=== PATIENT | female | born 1960 | race American Indian/Alaskan Native ===

== ENCOUNTER 2016-12-25 09:35 | Outpatient (CLI) | payer OTHER ==
--- NOTE | 2016-12-25 09:59 | XRay Report ---
Chest 2 views. Findings: The heart is normal in size with normal pulmonary vascularity. The lungs are clear. There is no pleural fluid. No interstitial prominence on today's study. Impression: No acute findings.
== END 2016-12-25 09:36 | disposition home or self-care (01) ==
LOC: XRAY 09:35
PROVIDERS: ATTEND Internal Medicine
DX: Z02.71 Encounter for disability determination (principal); I50.9 Heart failure, unspecified
CPT/HCPCS: 71020

== ENCOUNTER 2022-04-21 14:08 | Observation (INO) | payer MEDICARE, OTHER ==
--- NOTE | 2022-04-21 14:12 | Emergency Department Report ---
Stated Complaint: CHEST PAIN SHORT OF BREATH Time Seen by Provider: 04/21/22 14:09 - HPI History of Present Illness: CP, sob, and n/v since Thursday. - ROS Review of Systems: c/o cp, sob, n/v. denies dizziness, fever. - Exam Physical Exam: alert and oriented. MSE screening note: Focused history and physical exam performed. Due to findings the following was ordered: cbc, cmp, troponin, ekg, cxr Patient will be evaluated by provider when she goes to a room. ED Disposition for MSE Condition: Stable
--- NOTE | 2022-04-21 14:54 | XRay Report ---
CHEST 2 VIEWS INDICATION / CLINICAL INFORMATION: chest pain. COMPARISON: 2 views of the chest from 12/25/2016. FINDINGS: SUPPORT DEVICES: None. HEART / MEDIASTINUM: No significant abnormality. LUNGS / PLEURA: No significant pulmonary abnormality. No significant pleural effusion. No pneumothora x. ADDITIONAL FINDINGS: No significant additional findings. IMPRESSION: 1. No acute abnormality of the chest. Signer Name: Wing Segovia MD Signed: 04/21/2022 2:47 PM Workstation Name: [id number]
[2022-04-21 15:21] LABS: Hematocrit 38.1 % (30.3-42.9); Hemoglobin 12.9 gm/dl (10.1-14.3); Mean Corpuscular HGB Conc 34 % (30-34); Mean Corpuscular Volume 89 fl (79-97); Platelet Count 245 K/mm3 (140-440); Red Blood Count 4.31 M/mm3 (3.65-5.03); Red Cell Distribution Width 12.1 % (13.2-15.2)
[2022-04-21 15:50] LABS: Alanine Aminotransferase 12 units/L (7-56); Albumin 3.8 g/dL (3.9-5); BUN/Creatinine Ratio 18; Blood Urea Nitrogen 22 mg/dL (7-17); Calcium 9.3 mg/dL (8.4-10.2); Hemolysis Index 110
[2022-04-21] MEDS ORDERED: SODIUM CHLORIDE 0.9% 1000 ML 1,000 ML IV ONE ×3 (17:05→22:13)
[2022-04-21] MEDS ORDERED: DEXTROSE 50% IN WATER (25GM) 50 ML SYRINGE IV PRN (17:06)
[2022-04-21] MEDS ORDERED: INSULIN REGULAR, HUMAN 100 UNITS/1 ML IV ONE ×2 (17:08→23:20)
--- NOTE | 2022-04-21 17:10 | Event Note ---
ED Screening Note Date of service: 04/21/22 Time: 17:09 ED Screening Note: This initial assessment/diagnostic orders/clinical plan/treatment(s) is/are subject to change based on patients health status, clinical progression and re- assessment by fellow clinical providers in the ED. Further treatment and workup at subsequent clinical providers discretion. Patient/guardian urged not to elope from the ED as their condition may be serious if not clinically assessed and managed. Initial orders include: I received a phone call from lab with concern for elevated blood sugars. I have reviewed patient's labs. Patient has evidence of DKA. Given this I have ordered insulin bolus and insulin drip and will inform the front and patient to get a room as soon as possible.
[2022-04-21 18:25] LABS: Calcium 9.2 mg/dL (8.4-10.2)
[2022-04-21 23:21] LABS: Calcium 9.2 mg/dL (8.4-10.2)
[2022-04-21] MEDS ORDERED: INSULIN REGULAR, HUMAN 100 UNITS in SODIUM CHLORIDE 0.9% 99 ML IV SCH (23:45)
[2022-04-21] MEDS: INSULIN REGULAR, HUMAN 100 UNITS in SODIUM CHLORIDE 0.9% 99 ML IV SCH (23:56)
--- NOTE | 2022-04-22 00:44 | Emergency Department Report ---
ED General Adult HPI - General Chief complaint: Chest Pain Stated complaint: CHEST PAIN SHORT OF BREATH PUI?: No Time Seen by Provider: 04/21/22 14:09 Source: patient Mode of arrival: Ambulatory Limitations: No Limitations - History of Present Illness Initial comments: Pt reports substernal chest pain x3 days. pt presented to ED anxious and crying. pt reports she has had multiple MIs. pt reports her chest pain started after she was on a couple days worth of abx. pt reports SOB that improved while talking to her in triage. pt denies diaphoresis or n/v. + epigastric pain after eating some soup today. -: Gradual, days(s) (3) Location: chest Radiation: non-radiation Severity scale (0 -10): 0 Improves with: none Worsens with: none Treatments Prior to Arrival: none - Related Data Previous Rx's Medication Instructions Recorded Last Taken Type Aspirin EC [Halfprin EC] 81 mg PO QDAY #30 tablet.dr 06/12/16 Unknown Rx Furosemide [Lasix TAB] 40 mg PO QDAY #30 tablet 06/12/16 Unknown Rx Potassium Chloride 10 meq PO QDAY #30 capsule.er 06/12/16 Unknown Rx carvediloL [Coreg] 6.25 mg PO BID #60 tablet 06/12/16 Unknown Rx lisinopriL [Zestril TAB] 10 mg PO QDAY #30 tablet 06/12/16 Unknown Rx predniSONE 10 mg PO QDAY #10 tab 06/12/16 Unknown Rx Allergies Allergy/AdvReac Type Severity Reaction Status Date / Time No Known Allergies Allergy Unverified 06/10/16 14:16 ED Review of Systems ROS: Stated complaint: CHEST PAIN SHORT OF BREATH Other details as noted in HPI Constitutional: denies: chills, fever Eyes: denies: eye pain, eye discharge, vision change ENT: denies: ear pain, throat pain Respiratory: denies: cough, shortness of breath, wheezing Cardiovascular: denies: chest pain, palpitations Endocrine: no symptoms reported Gastrointestinal: denies: abdominal pain, nausea, diarrhea Genitourinary: denies: urgency, dysuria, discharge Musculoskeletal: denies: back pain, joint swelling, arthralgia Skin: denies: rash, lesions Neurological: denies: headache, weakness, paresthesias Psychiatric: denies: anxiety, depression Hematological/Lymphatic: denies: easy bleeding, easy bruising ED Past Medical Hx - Past Medical History Hx Hypertension: Yes Hx GERD: Yes Additional medical history: anxiety - Surgical History Additional Surgical History: foot surgery, face surgery, nose - Social History Smoking Status: Never Smoker - Medications Home Medications: Home Medications Medication Instructions Recorded Confirmed Last Taken Type Aspirin EC [Halfprin EC] 81 mg PO QDAY #30 tablet.dr 06/12/16 Unknown Rx Furosemide [Lasix TAB] 40 mg PO QDAY #30 tablet 06/12/16 Unknown Rx Potassium Chloride 10 meq PO QDAY #30 capsule.er 06/12/16 Unknown Rx carvediloL [Coreg] 6.25 mg PO BID #60 tablet 06/12/16 Unknown Rx lisinopriL [Zestril TAB] 10 mg PO QDAY #30 tablet 06/12/16 Unknown Rx predniSONE 10 mg PO QDAY #10 tab 06/12/16 Unknown Rx ED Physical Exam - General Limitations: No Limitations General appearance: alert, in no apparent distress - Head Head exam: Present: atraumatic, normocephalic - Eye Eye exam: Present: normal appearance - ENT ENT exam: Present: mucous membranes moist - Neck Neck exam: Present: normal inspection - Respiratory Respiratory exam: Present: normal lung sounds bilaterally. Absent: respiratory distress - Cardiovascular Cardiovascular Exam: Present: regular rate, normal rhythm. Absent: systolic murmur, diastolic murmur, rubs, gallop - GI/Abdominal GI/Abdominal exam: Present: soft, normal bowel sounds - Extremities Exam Extremities exam: Present: normal inspection - Back Exam Back exam: Present: normal inspection - Neurological Exam Neurological exam: Present: alert, oriented X3 - Psychiatric Psychiatric exam: Present: normal affect, normal mood - Skin Skin exam: Present: warm, dry, intact, normal color. Absent: rash ED Course Vital Signs 04/21/22 04/21/22 04/21/22 14:10 23:24 23:27 Temperature 98.9 F 98.1 F Pulse Rate 95 H Respiratory 26 H 17 Rate Blood Pressure 117/72 Blood Pressure 139/73 [Left] O2 Sat by Pulse 99 100 100 Oximetry ED Medical Decision Making - Lab Data Result diagrams: 04/21/22 14:22 04/21/22 22:49 - EKG Data -: EKG Interpreted by Nj EKG shows normal: sinus rhythm - EKG Data Interpretation: LVH - Radiology Data Radiology results: report reviewed, image reviewed - Medical Decision Making work up showed elevated BS , new to patient , ketosis gap and acidosis , fluids given insulin bolus and drip started with DKA protocol Critical care attestation.: If time is entered above; I have spent that time in minutes in the direct care of this critically ill patient, excluding procedure time. ED Disposition Clinical Impression: DKA (diabetic ketoacidosis), Diabetes mellitus, new onset, Ketosis, Chest pain Disposition: 09 ADMITTED INPATIENT Is pt being admited?: Yes Does the pt Need Aspirin: No Condition: Fair Instructions: Diabetic Ketoacidosis (ED), Diabetes Mellitus Type 2 in Adults (ED), Nonspecific Chest Pain, Adult Referrals: PRIMARY CARE, [Primary Care Provider] - 3-5 Days
[2022-04-22 02:06] LABS: Calcium 8.7 mg/dL (8.4-10.2)
[2022-04-22] MEDS ORDERED: ACETAMINOPHEN 325 MG TAB PO PRN (02:35)
[2022-04-22] MEDS ORDERED: DEXTROSE 50% IN WATER (25GM) 50 ML SYRINGE IV PRN ×2 (02:35→08:24)
[2022-04-22] MEDS ORDERED: MORPHINE 4 MG/1 ML INJ IV PRN (02:35)
[2022-04-22] MEDS ORDERED: NITROGLYCERIN 0.4 MG TAB SUBL SL PRN (02:35)
[2022-04-22] MEDS ORDERED: traMADol 50 MG TAB PO PRN (02:35)
--- NOTE | 2022-04-22 02:43 | History and Physical Report ---
History of Present Illness Date of examination: 04/22/22 Date of admission: 04/22/22 Chief complaint: Chest pain Shortness of breath History of present illness: 62 years old female with past medical history of hypertension, GERD and anxiety disorder was brought to the emergency room because of substernal chest pain x3 days. pt presented to ED anxious and crying. pt reports she has had multiple MIs. pt reports her chest pain started after she was on a couple days worth of abx. pt reports SOB that improved while talking to her in triage. pt denies diaphoresis or n/v. + epigastric pain after eating some soup today. In the emergency room initial cardiac enzyme is negative troponin is 0.010 but patient is found to have DKA. Patient blood glucose is 733, bicarb 16, anion gap 28, potassium 5.1 and sodium 129. So going to admit to the ICU put the patient on IV fluid and insulin drip , will consult critical care for evaluation Past History Past Medical History: GERD, hypertension, other (Anxiety) Past Surgical History: Other (foot surgery, face surgery, nose) Social history: no significant social history Family history: hypertension Medications and Allergies Allergies Allergy/AdvReac Type Severity Reaction Status Date / Time No Known Allergies Allergy Unverified 06/10/16 14:16 Home Medications Medication Instructions Recorded Confirmed Last Taken Type Aspirin EC [Halfprin EC] 81 mg PO QDAY #30 tablet.dr 06/12/16 Unknown Rx Furosemide [Lasix TAB] 40 mg PO QDAY #30 tablet 06/12/16 Unknown Rx Potassium Chloride 10 meq PO QDAY #30 capsule.er 06/12/16 Unknown Rx carvediloL [Coreg] 6.25 mg PO BID #60 tablet 06/12/16 Unknown Rx lisinopriL [Zestril TAB] 10 mg PO QDAY #30 tablet 06/12/16 Unknown Rx predniSONE 10 mg PO QDAY #10 tab 06/12/16 Unknown Rx Active Meds: Active Medications Dextrose (Dextrose 50% In Water (25gm) 50 Ml Syringe) 0 ml IV Q30MIN PRN; Protocol PRN Reason: Hypoglycemia Insulin Human Regular 100 (units/ Sodium Chloride) 100 mls @ 1 mls/hr IV TITR SÁNCHEZ; Protocol Last Titration: 04/22/22 02:14 Dose: 11 units/hr, 11 mls/hr Review of Systems All systems: negative Cardiovascular: chest pain, shortness of breath Respiratory: shortness of breath Exam - Constitutional Vitals: Temp Pulse Resp BP Pulse Ox 98.2 F 80 16 122/84 100 04/22/22 01:22 04/22/22 01:22 04/22/22 01:22 04/22/22 01:22 04/22/22 01:22 General appearance: Present: no acute distress, well-nourished - EENT Eyes: Present: PERRL ENT: hearing intact, clear oral mucosa - Neck Neck: Present: supple, normal ROM - Respiratory Respiratory effort: normal Respiratory: bilateral: CTA - Cardiovascular Heart Sounds: Present: S1 & S2. Absent: rub, click - Extremities Extremities: pulses symmetrical, No edema Peripheral Pulses: within normal limits - Abdominal General gastrointestinal: Present: soft, non-tender, non-distended, normal bowel sounds Female genitourinary: Present: normal - Integumentary Integumentary: Present: clear, warm, dry - Musculoskeletal Musculoskeletal: gait normal, strength equal bilaterally - Psychiatric Psychiatric: appropriate mood/affect, intact judgment & insight - Neurologic Neurologic: CNII-XII intact, moves all extremities HEART Score - HEART Score Troponin: Troponin T < 0.010 ng/mL (0.00-0.029) 04/21/22 14:22 Results - Labs CBC & Chem 7: 04/21/22 14:22 04/22/22 01:13 Labs: Laboratory Last Values WBC 9.1 K/mm3 (4.5-11.0) 04/21/22 14: RBC 4.31 M/mm3 (3.65-5.03) 04/21/22 14:22 Hgb 12.9 gm/dl (10.1-14.3) 04/21/22 14:22 Hct 38.1 % (30.3-42.9) 04/21/22 14:22 MCV 89 fl (79-97) 04/21/22 14:22 MCH 30 pg (28-32) 04/21/22 14:22 MCHC 34 % (30-34) 04/21/22 14:22 RDW 12.1 % (13.2-15.2) L 04/21/22 14:22 Plt Count 245 K/mm3 (140-440) 04/21/22 14:22 Sodium 132 mmol/L (137-145) L D 04/22/22 01:13 Potassium 4.8 mmol/L (3.6-5.0) 04/22/22 01:13 Chloride 94.8 mmol/L (98-107) L 04/22/22 01:13 Carbon Dioxide 18 mmol/L (22-30) L 04/22/22 01:13 Anion Gap 24 mmol/L 04/22/22 01:13 BUN 20 mg/dL (7-17) H 04/22/22 01:13 Creatinine 1.2 mg/dL (0.6-1.2) 04/22/22 01:13 Estimated GFR 55 ml/min 04/22/22 01:13 BUN/Creatinine Ratio 17 % 04/22/22 01:13 Glucose 673 mg/dL (65-100) H* 04/22/22 01:13 POC Glucose 556 mg/dL (70-105) H 04/22/22 02:12 Ketones Quantitative Moderate (Negative) 04/21/22 22:49 Calcium 8.7 mg/dL (8.4-10.2) 04/22/22 01:13 Phosphorus 3.30 mg/dL (2.5-4.5) D 04/21/22 23:39 Magnesium 2.00 mg/dL (1.7-2.3) 04/21/22 23:39 Total Bilirubin 0.20 mg/dL (0.1-1.2) 04/21/22 14:22 AST 14 units/L (5-40) 04/21/22 14:22 ALT 12 units/L (7-56) 04/21/22 14:22 Alkaline Phosphatase 120 units/L (35-129) 04/21/22 14:22 Troponin T < 0.010 ng/mL (0.00-0.029) 04/21/22 14:22 Total Protein 7.2 g/dL (6.3-8.2) 04/21/22 14:22 Albumin 3.8 g/dL (3.9-5) L 04/21/22 14:22 Albumin/Globulin Ratio 1.1 % 04/21/22 14:22 - Imaging and Cardiology Chest x-ray: report reviewed Assessment and Plan VTE prophylaxis?: Chemical Plan of care discussed with patient/family: Yes - Patient Problems (1) DKA (diabetic ketoacidosis) Current Visit: Yes Status: Acute Plan to address problem: Admit the patient to the ICU. NPO. Half-normal saline at the rate of 150 cc/h. Insulin drip as per protocol. Serial BMP. Will consult critical care evaluation (2) Hypertension Current Visit: Yes Status: Acute Plan to address problem: Coreg 6.25 mg p.o. twice daily. Lisinopril 10 mg p.o. daily. We will monitor the blood pressure closely (3) GERD (gastroesophageal reflux disease) Current Visit: Yes Status: Acute Plan to address problem: Pepcid 20 mg IV every 12 hours. We will continue home medication (4) Chest pain Current Visit: Yes Status: Acute Plan to address problem: Aspirin 325 mg p.o. daily. Lipitor 40 mg p.o. daily. Coreg 6.25 mg p.o. twice daily. Nitroglycerin as needed. We will do the serial cardiac enzymes. Echocardiogram. Consult cardiology if needed (5) Diabetes mellitus, new onset Current Visit: Yes Status: Acute Plan to address problem: Half-normal saline at the rate of 150 cc/h. Insulin drip as per protocol. Will consult dietitian evaluation (6) DVT prophylaxis Current Visit: Yes Status: Acute Plan to address problem: Heparin 5000 units subcu every 12 hours for DVT prophylaxis. Pepcid 20 mg IV every 12 hours for GI prophylaxis. Patient is a full code
[2022-04-22] MEDS ORDERED: SODIUM CHLORIDE 0.45% 1000 ML 1,000 ML IV SCH (03:00)
[2022-04-22] MEDS ORDERED: INSULIN REGULAR, HUMAN 100 UNITS in SODIUM CHLORIDE 0.9% 99 ML IV SCH (03:00)
[2022-04-22] MEDS ORDERED: D5W/0.45% NACL/KCL 20 MEQ 20 MEQ/1,000 ML BAG IV SCH (03:00)
[2022-04-22] MEDS: INSULIN REGULAR, HUMAN 100 UNITS in SODIUM CHLORIDE 0.9% 99 ML IV SCH (04:25)
[2022-04-22 05:14] LABS: Basophils # (Auto) 0.1 K/mm3 (0.0-0.1); Basophils % (Auto) 1.1 % (0.0-1.8); Eosinophils # (Auto) 0.1 K/mm3 (0.0-0.4); Hemoglobin 12.3 gm/dl (10.1-14.3); Lymphocytes # (Auto) 2.4 K/mm3 (1.2-5.4); Lymphocytes % (Auto) 27.7 % (13.4-35.0); Mean Corpuscular HGB Conc 33 % (30-34); Mean Corpuscular Volume 86 fl (79-97); Monocytes # (Auto) 0.9 K/mm3 (0.0-0.8); Monocytes % (Auto) 10.6 % (0.0-7.3); Platelet Count 224 K/mm3 (140-440); Red Blood Count 4.28 M/mm3 (3.65-5.03); Red Cell Distribution Width 11.9 % (13.2-15.2)
[2022-04-22 05:22] LABS: Calcium 9.2 mg/dL (8.4-10.2)
[2022-04-22] MEDS ORDERED: LISINOPRIL 10 MG TAB PO SCH (08:00)
[2022-04-22] MEDS ORDERED: SODIUM CHLORIDE 0.9% 1000 ML 1,000 ML ONE (08:02)
--- NOTE | 2022-04-22 08:29 | Electrocardiograph Report ---
[facility] Test Date: 2022-04-21 Test Time: 14:19:54 Pat Name: ORI MONTEJO Department: Room: [place] [address] Gender: F Warehouse Operations Manager: CARLOS : 1960 Requested By: DAISY CHAVEZ Order Number: [id number] Reading MD: Ulises Ricardo Measurements Intervals [place] Rate: 91 P: 34 IA: 166 QRS: -27 QRSD: 84 T: 209 QT: 386 QTc: 477 Interpretive Statements Sinus rhythm Probable left atrial enlargement LVH with secondary repolarization abnormality No previous ECG available for comparison Electronically Signed On 04-22-2022 8:28:38 EDT by Ulises Ricardo
[2022-04-22 08:56] LABS: Calcium 9.5 mg/dL (8.4-10.2)
[2022-04-22] MEDS ORDERED: INSULIN GLARGINE 100 UNITS/ML SUB-Q SCH (09:00)
[2022-04-22] MEDS ORDERED: INSULIN LISPRO 100 UNIT/ML SUB-Q SCH (10:00)
[2022-04-22] MEDS ORDERED: HEPARIN 5,000 UNIT/1 ML VIAL SUB-Q SCH (10:00)
[2022-04-22] MEDS ORDERED: carvediloL 6.25 MG TAB PO SCH (10:00)
--- NOTE | 2022-04-22 10:48 | Consultation ---
History of Present Illness - Reason for Consult Consult date: 04/22/22 DKA Requesting physician: KITYT CROW - History of Present Illness 62 y/o female found to be in DKA. Started on IVF's and insulin drip. This am, gap has closed and sugars are better. Past History Past Medical History: GERD, hypertension, other (Anxiety) Past Surgical History: Other (foot surgery, face surgery, nose) Social history: no significant social history Family history: hypertension Medications and Allergies Allergies Allergy/AdvReac Type Severity Reaction Status Date / Time No Known Allergies Allergy Unverified 06/10/16 14:16 Home Medications Medication Instructions Recorded Confirmed Last Taken Type Aspirin EC [Halfprin EC] 81 mg PO QDAY #30 tablet.dr 06/12/16 Unknown Rx Furosemide [Lasix TAB] 40 mg PO QDAY #30 tablet 06/12/16 Unknown Rx Potassium Chloride 10 meq PO QDAY #30 capsule.er 06/12/16 Unknown Rx carvediloL [Coreg] 6.25 mg PO BID #60 tablet 06/12/16 Unknown Rx lisinopriL [Zestril TAB] 10 mg PO QDAY #30 tablet 06/12/16 Unknown Rx predniSONE 10 mg PO QDAY #10 tab 06/12/16 Unknown Rx Active Meds: Active Medications Acetaminophen (Acetaminophen 325 Mg Tab) 650 mg PO Q6H PRN PRN Reason: Pain, Mild (1-3) Aspirin (Aspirin Ec 325 Mg Tab) 325 mg PO QDAY SÁNCHEZ Atorvastatin Calcium (Atorvastatin 40 Mg Tab) 40 mg PO QHS SÁNCHEZ Carvedilol (Carvedilol 6.25 Mg Tab) 6.25 mg PO BID SÁNCHEZ Last Admin: 04/22/22 09:33 Dose: 6.25 mg Dextrose (Dextrose 50% In Water (25gm) 50 Ml Syringe) 50 ml IV Q30MIN PRN; Protocol PRN Reason: Hypoglycemia Heparin Sodium (Porcine) (Heparin 5,000 Unit/1 Ml Vial) 5,000 unit SUB-Q Q12HR [facility] Last Admin: 04/22/22 09:33 Dose: 5,000 unit Sodium Chloride (Nacl 0.45% 1000 Ml) 1,000 mls @ 150 mls/hr IV DIRECT SÁNCHEZ Potassium Chloride/Dextrose/Sod Cl (D5w/0.45% Nacl/Kcl 20 Meq) 20 meq in 1,000 mls @ 125 mls/hr IV DIRECT SÁNCHEZ Last Infusion: 04/22/22 09:39 Dose: 0 mls/hr Insulin Glargine (Insulin Glargine 100 Units/Ml) 20 units SUB-Q ONCE@0900 [facility] Stop: 04/22/22 13:00 Last Admin: 04/22/22 09:34 Dose: 20 units Insulin Human Lispro (Insulin Lispro 100 Unit/Ml) 0 unit SUB-Q Q4HR [facility]; Protocol Last Admin: 04/22/22 09:33 Dose: 3 unit Lisinopril (Lisinopril 10 Mg Tab) 10 mg PO QDAY@0800 [facility] Last Admin: 04/22/22 08:07 Dose: Not Given Morphine Sulfate (Morphine 4 Mg/1 Ml Inj) 2 mg IV Q5MIN PRN PRN Reason: Chest Pain unrelieved by NTG Nitroglycerin (Nitroglycerin 0.4 Mg Tab Subl) 0.4 mg SL Q5M PRN PRN Reason: Chest Pain Sodium Chloride (Sodium Chloride 0.9% 10 Ml Flush Syringe) 10 ml IV PRN PRN PRN Reason: LINE FLUSH Tramadol HCl (Tramadol 50 Mg Tab) 50 mg PO Q6H PRN PRN Reason: Pain, Moderate (4-6) Review of Systems All systems: negative Exam - Constitutional Vitals: Temp Pulse Resp BP Pulse Ox 98.0 F 83 18 115/70 99 04/22/22 04:00 04/22/22 09:33 04/22/22 08:28 04/22/22 09:33 04/22/22 08:28 Results - Labs CBC & Chem 7: 04/22/22 04:36 04/22/22 07:52 Labs: Abnormal lab results 04/21/22 04/21/22 04/21/22 Range/Units 14:22 14:22 17:34 RDW 12.1 L (13.2-15.2) % [place] % (Auto) (0.0-7.3) % [place] # (Auto) (0.0-0.8) K/mm3 Sodium 129 L 126 L (137-145) mmol/L Potassium 5.1 H 5.2 H (3.6-5.0) mmol/L Chloride 90.5 L 87.0 L (98-107) mmol/L Carbon Dioxide 16 L 19 L (22-30) mmol/L BUN 22 H 23 H (7-17) mg/dL Creatinine 1.3 H (0.6-1.2) mg/dL Glucose 733 H* 971 H* (65-100) mg/dL POC Glucose (70-105) mg/dL Phosphorus (2.5-4.5) mg/dL Albumin 3.8 L (3.9-5) g/dL 04/21/22 04/22/22 04/22/22 Range/Units 22:49 01:00 01:13 RDW (13.2-15.2) % [place] % (Auto) (0.0-7.3) % [place] # (Auto) (0.0-0.8) K/mm3 Sodium 124 L 132 L D (137-145) mmol/L Potassium 5.2 H (3.6-5.0) mmol/L Chloride 84.6 L 94.8 L (98-107) mmol/L Carbon Dioxide 20 L 18 L (22-30) mmol/L BUN 22 H 20 H (7-17) mg/dL Creatinine 1.4 H (0.6-1.2) mg/dL Glucose 928 H* 673 H* (65-100) mg/dL POC Glucose 533 H (70-105) mg/dL Phosphorus (2.5-4.5) mg/dL Albumin (3.9-5) g/dL 04/22/22 04/22/22 04/22/22 Range/Units 02:12 03:22 04:19 RDW (13.2-15.2) % [place] % (Auto) (0.0-7.3) % [place] # (Auto) (0.0-0.8) K/mm3 Sodium (137-145) mmol/L Potassium (3.6-5.0) mmol/L Chloride (98-107) mmol/L Carbon Dioxide (22-30) mmol/L BUN (7-17) mg/dL Creatinine (0.6-1.2) mg/dL Glucose (65-100) mg/dL POC Glucose 556 H 436 H 305 H (70-105) mg/dL Phosphorus (2.5-4.5) mg/dL Albumin (3.9-5) g/dL 04/22/22 04/22/22 04/22/22 Range/Units 04:36 04:36 04:36 RDW 11.9 L (13.2-15.2) % [place] % (Auto) 10.6 H (0.0-7.3) % [place] # (Auto) 0.9 H (0.0-0.8) K/mm3 Sodium (137-145) mmol/L Potassium (3.6-5.0) mmol/L Chloride (98-107) mmol/L Carbon Dioxide (22-30) mmol/L BUN 18 H (7-17) mg/dL Creatinine (0.6-1.2) mg/dL Glucose 316 H (65-100) mg/dL POC Glucose (70-105) mg/dL Phosphorus 1.90 L D (2.5-4.5) mg/dL Albumin (3.9-5) g/dL 04/22/22 04/22/22 04/22/22 Range/Units 05:21 06:29 07:52 RDW (13.2-15.2) % [place] % (Auto) (0.0-7.3) % [place] # (Auto) (0.0-0.8) K/mm3 Sodium (137-145) mmol/L Potassium (3.6-5.0) mmol/L Chloride (98-107) mmol/L Carbon Dioxide (22-30) mmol/L BUN 18 H (7-17) mg/dL Creatinine (0.6-1.2) mg/dL Glucose 202 H (65-100) mg/dL POC Glucose 265 H 235 H (70-105) mg/dL Phosphorus (2.5-4.5) mg/dL Albumin (3.9-5) g/dL 04/22/22 Range/Units 09:25 RDW (13.2-15.2) % [place] % (Auto) (0.0-7.3) % [place] # (Auto) (0.0-0.8) K/mm3 Sodium (137-145) mmol/L Potassium (3.6-5.0) mmol/L Chloride (98-107) mmol/L Carbon Dioxide (22-30) mmol/L BUN (7-17) mg/dL Creatinine (0.6-1.2) mg/dL Glucose (65-100) mg/dL POC Glucose 205 H (70-105) mg/dL Phosphorus (2.5-4.5) mg/dL Albumin (3.9-5) g/dL - Imaging and Cardiology Chest x-ray: image reviewed (normal chest x-ray) Assessment and Plan 62 y/o female with elevated blood sugar and Anion Gap in presumed dKA 1. No ketones checked so presumptive DKA 2. Now resolved with normal anion GAP 3. Needs HgB A1C checked to assess blood sugar status on a chronic basis 4. Patient was taking steroids, steroid induced hyperglycemia? Follow up A1c 5. Diabetic education and follow up with PCP 6. Can stop insulin drip and transition to long acting insulin with sliding scale coverage 7. Can be downgraded from ICU status.
[2022-04-22 11:23] LABS: BUN/Creatinine Ratio 18; Blood Urea Nitrogen 18 mg/dL (7-17); Hemolysis Index 6
[2022-04-22 12:17] VITALS: BP 138/68
--- NOTE | 2022-04-22 12:22 | Discharge Summary ---
Providers - Providers Date of Admission: 04/22/22 02:35 Date of discharge: 04/22/22 Attending physician: GLEN GOMEZ MD 04/22/22 Consult to Cardiac Rehabilitation [CONS] Routine Reason For Exam: Phase I 04/22/22 00:51 Consult to Physician [CONS] Stat Comment: Dr. Oh spoke with Dr. Cruz @ 0052 Consulting Provider: TUSHAR CRUZ Physician Instructions: Reason For Exam: DKA 04/22/22 02:35 Consult to Dietitian/Nutrition [CONS] Routine Physician Instructions: Reason For Exam: DKA Reason for Consult: Nutrition Recommendations Reason for Consult: Diet education 04/22/22 11:05 Consult to Case Management [CONS] Stat Services Needed at Discharge: Other Notified:: case mx Primary care physician: [employer] TE[employer]NICAL ASSISTANT Hospitalization Reason for admission: chest pain Condition: Fair Hospital course: History of present illness: 62 years old female with past medical history of hypertension, GERD and anxiety disorder was brought to the emergency room because of substernal chest pain x3 days. pt presented to ED anxious and crying. pt reports she has had multiple MIs. pt reports her chest pain started after she was on a couple days worth of abx. pt reports SOB that improved while talking to her in triage. pt denies diaphoresis or n/v. + epigastric pain after eating some soup today. In the emergency room initial cardiac enzyme is negative troponin is 0.010 but patient is found to have DKA. Patient blood glucose is 733, bicarb 16, anion gap 28, potassium 5.1 and sodium 129. So going to admit to the ICU put the patient on IV fluid and insulin drip , will consult critical care for evaluation Hospital Course: Patient was admitted for diabetic ketoacidosis with a blood sugar of 971, anion gap of 20. She also was noted to have acute kidney injury with creatinine 1.3. DKA protocol initiated and blood sugars were aggressively corrected utilizing IV insulin. Gap currently resolved on latest metabolic panel. Patient initiated on Lantus and given a diabetic diet. Her symptoms have now abated. Patient states that her chest pain is resolved and that she was mostly anxious prior to coming to our facility and believes that is the reason for her symptoms. Work-up with troponin and EKG was negative for acute findings of HI. she also admitted to some epigastric pain and possibly some nausea after eating soup yesterday. The symptoms have all resolved now. She will be discharged home if she can tolerate a diet. Advised care team to administer diabetic education in addition to diabetic education already administered on my encounter. We will be prescribing the patient insulin 70/30 20 units subq twice daily as well as diabetic supplies on discharge. She is advised to follow-up with the primary care doctor to discuss this hospitalization as soon as she possibly can. Assessment and Plan: (1) DKA (diabetic ketoacidosis) Current Visit: Yes Status: Acute Plan to address problem: Admit the patient to the ICU. NPO. Half-normal saline at the rate of 150 cc/h. Insulin drip as per protocol. Serial BMP. Will consult critical care evaluation (2) Hypertension Current Visit: Yes Status: Acute Plan to address problem: Coreg 6.25 mg p.o. twice daily. Lisinopril 10 mg p.o. daily. We will monitor the blood pressure closely (3) GERD (gastroesophageal reflux disease) Current Visit: Yes Status: Acute Plan to address problem: Pepcid 20 mg IV every 12 hours. We will continue home medication (4) Chest pain Current Visit: Yes Status: Acute Plan to address problem: Aspirin 325 mg p.o. daily. Lipitor 40 mg p.o. daily. Coreg 6.25 mg p.o. twice daily. Nitroglycerin as needed. We will do the serial cardiac enzymes. Echocardiogram. Consult cardiology if needed (5) Diabetes mellitus, new onset Current Visit: Yes Status: Acute Plan to address problem: Half-normal saline at the rate of 150 cc/h. Insulin drip as per protocol. Will consult dietitian evaluation (6) DVT prophylaxis Current Visit: Yes Status: Acute Plan to address problem: Heparin 5000 units subcu every 12 hours for DVT prophylaxis. Pepcid 20 mg IV every 12 hours for GI prophylaxis. Patient is a full code Disposition: 01 HOME / SELF CARE / HOMELESS Final Discharge Diagnosis (Prints w/discharge instructions): diabetic ketoacidosis Time spent for discharge: 25 Core Measure Documentation - Palliative Care Palliative Care/ Comfort Measures: Not Applicable - Core Measures Any of the following diagnoses?: none Exam - Physical Exam Narrative exam: General appearance: Present: no acute distress, well-nourished - EENT Eyes: Present: PERRL ENT: hearing intact, clear oral mucosa - Neck Neck: Present: supple, normal ROM - Respiratory Respiratory effort: normal Respiratory: bilateral: CTA - Cardiovascular Heart Sounds: Present: S1 & S2. Absent: rub, click - Extremities Extremities: pulses symmetrical, No edema Peripheral Pulses: within normal limits - Abdominal General gastrointestinal: Present: soft, non-tender, non-distended, normal bowel sounds Female genitourinary: Present: normal - Integumentary Integumentary: Present: clear, warm, dry - Musculoskeletal Musculoskeletal: gait normal, strength equal bilaterally - Psychiatric Psychiatric: appropriate mood/affect, intact judgment & insight - Neurologic Neurologic: CNII-XII intact, moves all extremities - Constitutional Vitals: Temp Pulse Resp BP Pulse Ox 98.0 F 86 17 138/68 100 04/22/22 04:00 04/22/22 12:15 04/22/22 12:15 04/22/22 12:15 04/22/22 12:15 Plan Follow up with: PRIMARY CARE, [Primary Care Provider] - 3-5 Days Prescriptions: Insulin NPH Hum/Reg Insulin Hm [HumuLIN 70/30 Kwikpen] 20 unit SQ BID 30 Days #1 box
[2022-04-23] MEDS ORDERED: ASPIRIN EC 325 MG TAB PO SCH (10:00)
== END 2022-04-22 13:53 | disposition home or self-care (01) ==
LOC: ED 14:08 → INTOOBSV 04-22 02:35 → CC1 04-22 02:35
PROVIDERS: ADMIT Hospitalist; ATTEND Internal Medicine
DX: E11.10 Type 2 diabetes mellitus with ketoacidosis without coma (principal); R07.89 Other chest pain; I10 Essential (primary) hypertension; K21.9 Gastro-esophageal reflux disease without esophagitis; F41.9 Anxiety disorder, unspecified; Z79.899 Other long term (current) drug therapy; Z98.890 Other specified postprocedural states; Z79.4 Long term (current) use of insulin; Z79.82 Long term (current) use of aspirin
CPT/HCPCS: 36415; 71046; 80048; 80053; 82010; 82962; 83735; 84100; 84484; 85025; 85027; 93005; 96361; 96365; 96366; 96376; 99285; C8929; G0378; J1644; J3480; J7030; 93306; Q9967; J1815